=== PATIENT | male | born 1970 | race Caucasian/White ===

== ENCOUNTER 2019-06-29 10:01 | Emergency (ER) | payer OTHER ==
--- NOTE | 2019-06-29 10:24 | ED Physician Chart ---
ED Chief Complaint/HPI - Patient Information Date Seen:: 06/29/19 Time Seen:: 10:10 Chief Complaint:: cough and myalgia History of Present Illness:: Patient said cough myalgia for 2 days. He felt warm. Temperature not taken. Allergies:: Allergies Allergy/AdvReac Type Severity Reaction Status Date / Time No Known Allergies Allergy Verified 06/29/19 10:08 Vitals:: Vital Signs - 8 hr 06/29/19 10:09 Temp 98.0 F HR 80 RR 17 BP 114/60 O2 Sat % 97 Historian:: Patient Review:: Nurse's Note Reviewed ED Review of Systems - Review of Systems General/Constitutional: Fever Skin: No skin lesions Head: No headache Eyes: No loss of vision ENT: No earache Neck: No neck pain Cardio Vascular: No chest pain Pulmonary: Cough GI: No nausea, No vomiting, No diarrhea G/U: No dysuria Musculoskeletal: Muscle pain Psychiatric: No prior psych history Hematopoietic: No bruising Allergic/Immuno: No urticaria Neurological: No syncope ED Past Medical History - Past Medical History Past Medical History: No significant medical hx Family History: None Social History: Non Smoker, Other (no alcohol in last 4 years) Surgical History: None ED Physical Exam - Physical Examination General/Constitutional: Awake, Well-developed, well-nourished, Alert, No distress Head: Atraumatic Eyes: Lids, conjuctiva normal, PERRL Skin: Nl inspection, No rash, No skin lesions, No ecchymosis ENMT: External ears, nose nl, TM canals nl, Nasal exam nl, Lips, teeth, gums nl , Oropharynx nl, Tonsils nl Neck: No nuchal rigidity Respiratory: Nl effort/Exclusion Cardio Vascular: RRR, No murmur, gallop, rubs GI: No tenderness/rebounding/guarding Extremities: No tenderness or effusion, Normal digits & nails Neuro/Psych: Judgement/insight normal, No focal deficits ED Assessment - Assessment General Assessment: Patient has a viral syndrome and bronchitis. For his myalgia he will be given Toradol 30 mg intramuscularly and for his cough prescribed a Z-Allan. ED Septic Shock - . Is Septic Shock (SBP<90, OR Lactate>4 mmol\L) present?: No - <6hrs of presentation: Vital Signs: Vital Signs - 8 hr 06/29/19 10:09 Temp 98.0 F HR 80 RR 17 BP 114/60 O2 Sat % 97 ED Reassessment (Disposition) - Reassessment Reassessment Condition:: Unchanged - Diagnosis Diagnosis:: acute viral syndrome; bronchitis - Aftercare/Follow up Instructions Aftercare/Follow-Up Instructions:: Refer to Discharge Instructions - Patient Disposition Discharge/Transfer:: Home Condition at Disposition:: Stable, Unchanged
== END 2019-06-29 10:51 | disposition home or self-care (01) ==
LOC: ER 10:01
DX: J40 Bronchitis, not specified as acute or chronic (principal); B34.9 Viral infection, unspecified
CPT/HCPCS: 99283; 96372; J1885; Z7502